=== PATIENT | male | born 1960 | race Caucasian/White ===

== ENCOUNTER 2016-09-13 00:49 | Emergency (ER) | payer SELFPAY ==
[~2016-09-13] VITALS: Ht 175.3 cm; Wt 88.0 kg
[~2016-09-13 00:49] MED LIST: IBUPROFEN600 MG PO; NORCO 5-325 TA1 EACH PO; ROBAXIN-750750 MG PO
== END 2016-09-13 02:06 | disposition home or self-care (01) ==
LOC: ED 00:49
DX: R25.2 Cramp and spasm (principal); E11.9 Type 2 diabetes mellitus without complications; F17.200 Nicotine dependence, unspecified, uncomplicated; Z79.899 Other long term (current) drug therapy
CPT/HCPCS: 80053; 83735; 99283

== ENCOUNTER 2016-09-28 02:40 | Emergency (ER) | payer SELFPAY ==
[~2016-09-28] VITALS: Ht 175.3 cm; Wt 86.2 kg
--- NOTE | 2016-09-28 07:02 | EKG ---
[facility] [address] [facility] [place], [place] [address] Signed Sinus bradycardia Otherwise normal ECG No previous ECGs available Confirmed by JANEL KHAN MD ([id number]) on 09/28/2016 7:02:15 AM Electronically Signed By: JANEL KHAN MD 09/28/16 0702 PATIENT NAME: SHALONDA REAL TRELL Electrocardiogram DATE OF : 64 PHYSICIAN: JANEL KHAN MD REPORT #: [id number] REPORT IS CONFIDENTIAL AND NOT TO BE RELEASED WITHOUT AUTHORIZATION
== END 2016-09-28 07:45 | disposition short-term general hospital (02) ==
LOC: ED 02:40
DX: I21.4 Non-ST elevation (NSTEMI) myocardial infarction (principal); E11.9 Type 2 diabetes mellitus without complications; F17.200 Nicotine dependence, unspecified, uncomplicated
CPT/HCPCS: 71010; 80053; 84484; 85025; 93005; 93010; 96374; 99285

== ENCOUNTER 2016-12-25 09:42 | Emergency (ER) | payer SELFPAY ==
[~2016-12-25] VITALS: Ht 175.3 cm; Wt 86.2 kg
== END 2016-12-25 09:53 | disposition home or self-care (01) ==
LOC: ED 09:42
DX: Z00.8 Encounter for other general examination (principal)

== ENCOUNTER 2018-03-23 18:47 | Emergency (ER) | payer BC ==
[~2018-03-23] VITALS: Ht 175.3 cm; Wt 85.3 kg
[~2018-03-23 18:47] MED LIST changes: +ATORVASTATIN CA80 MG PO; +LOSARTAN POTASS50 MG PO
--- OUTSIDE RECORDS SUMMARY | 2018-03-23 18:50 | XMS ---
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 Soledad has no Care Guidelines for this patient. Care History Medical/Surgical 01/16/2018 [facility] INCIDENT- PATIENT REFERRED TO WALK IN CLINIC-01/15/18. - PATIENT HAS A FOLLOW UP APT FOR [facility]I INJURY ON 01/22/18 WITH WALK IN CLINIC. Jeimy VISIT COUNT (12 MO.) 2 [facility] TOTAL 2 NOTE: Visits indicate total known visits. ED/C VISIT TRACKING (12 MO.) 03/23/2018 18:47 [facility] [place] TYPE: Emergency COMPLAINT: - BACK PAIN/NON-INJURY 01/15/2018 10:17 [facility] [place] TYPE: Emergency COMPLAINT: - ELBOW PAIN/INJURY DIAGNOSES: - Pain in right elbow INPATIENT VISIT TRACKING (12 MO.) No inpatient visits to display in this time frame [id number]
[2018-03-23] MEDS ORDERED: CYCLOBENZAPRINE10 MG PO (19:54)
== END 2018-03-23 20:07 | disposition home or self-care (01) ==
LOC: ED 18:47
DX: M54.42 Lumbago with sciatica, left side (principal); E11.9 Type 2 diabetes mellitus without complications; F17.200 Nicotine dependence, unspecified, uncomplicated; Z79.899 Other long term (current) drug therapy
CPT/HCPCS: 99283

== ENCOUNTER 2018-04-15 06:11 | Emergency (ER) | payer OTHER, BC ==
[~2018-04-15] VITALS: Ht 175.3 cm; Wt 85.3 kg
[~2018-04-15 06:11] MED LIST changes: +CYCLOBENZAPRINE10 MG PO
--- OUTSIDE RECORDS SUMMARY | 2018-04-15 06:14 | XMS ---
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 - Has Care Guidelines - [facility] - 2 Visits in 30 Days CARE PROVIDERS MAXIMILIANO SALAMANCA Nurse Practitioner: Family 03/25/2018-Current PHONE: Unknown Soledad has no Care Guidelines for this patient. Care History Medical/Surgical 03/25/2018 [facility] - Patient is currently established with [facility]. If patient is seen in the ED during business hours. Please contact CHWs at [facility]. Care Recommendation: This patient has had 5 or more Emergency Department visits in the last 12 months.\T\nbsp; Patient requires education on the scope and purpose of the ED as an acute care provider not a Primary Care Provider and should not be utilized for chronic conditions.\T\nbsp; These are guidelines and the provider should exercise clinical judgment when providing care. 01/16/2018 [facility] - [facility]I INCIDENT- PATIENT REFERRED TO WALK IN CLINIC-01/15/18. - PATIENT HAS A FOLLOW UP APT FOR OJI INJURY ON 01/22/18 WITH WALK IN CLINIC. E.D. VISIT COUNT (12 MO.) 3 [facility] TOTAL 3 NOTE: Visits indicate total known visits. ED/UCC VISIT TRACKING (12 MO.) 04/15/2018 06:13 [facility] [place] TYPE: Emergency COMPLAINT: - BACK PAIN/INJURY 03/23/2018 18:47 [facility] [place] TYPE: Emergency COMPLAINT: - BACK PAIN/NON-INJURY DIAGNOSES: - Nicotine dependence, unspecified, uncomplicated - Type 2 diabetes mellitus without complications - Other group home (current) drug therapy - Lumbago with sciatica, left side - Low back pain 01/15/2018 10:[address] [facility] [place] TYPE: Emergency COMPLAINT: - ELBOW PAIN/INJURY DIAGNOSES: - Pain in right elbow INPATIENT VISIT TRACKING (12 MO.) No inpatient visits to display in this time frame [id number]
[2018-04-15] MEDS ORDERED: METFORMIN HCL1000 MG PO (06:23)
[2018-04-15] MEDS ORDERED: GABAPENTIN300 MG PO (06:23)
[2018-04-15] MEDS ORDERED: CYCLOBENZAPRINE10 MG PO (06:44)
[2018-04-15] MEDS ORDERED: DICLOFENAC SODI75 MG PO (06:44)
== END 2018-04-15 06:50 | disposition home or self-care (01) ==
LOC: ED 06:11
DX: S39.012A Strain of muscle, fascia and tendon of lower back, initial encounter (principal); X50.9XXA Other and unspecified overexertion or strenuous movements or postures, initial encounter; E11.9 Type 2 diabetes mellitus without complications; I25.2 Old myocardial infarction; F17.200 Nicotine dependence, unspecified, uncomplicated; Z79.899 Other long term (current) drug therapy; Z79.84 Long term (current) use of oral hypoglycemic drugs
CPT/HCPCS: 99283

== ENCOUNTER 2018-11-20 15:53 | Emergency (ER) | payer SELFPAY ==
[~2018-11-20] VITALS: Ht 175.3 cm; Wt 86.2 kg
--- OUTSIDE RECORDS SUMMARY | ~2018-11-20 | XMS | Clinical Summary ---
Demographics + + + | Address | [address] | | | [place] [address] | + + + | Home Phone | | + + + | Preferred Language | Unknown | + + + | Marital Status | Single | + + + | Temple Affiliation | Unknown | + + + | Race | Unknown | + + + | Ethnic Group | Unknown | + + + Author + + + | Author | [facility] | | | and [place] | + + + | Organization | [facility] | | | and [place] | + + + | Address | Unknown | + + + | Phone | Unavailable | + + + Support + + + + + | Name | Relationship | Address | Phone | + + + + + | Lukas Delong | ECON | [address] | | | | | [place], [place] | | | | | [address] | | + + + + + Care Team Providers + +------+ + | Care Rn Lab Name | Role | Phone | + +------+ + | No, Physician | PCP | Unavailable | + +------+ + Allergies No Known Allergies Medications + + + +---------+------+------+-------+ | Medication | Sig | Dispensed | Refills | Star | End | Statu | | | | | | t | Date | s | | | | | | Date | | | + + + +---------+------+------+-------+ | aspirin 81 mg | Take 1 tablet by | 30 | 2 | 08/ | | Activ | | chewable tablet | mouth Daily. | tablet | | 03/10 | | e | | | | | | 17 | | | + + + +---------+------+------+-------+ | nitroglycerin | Take one tablet | 25 | 11 | 08/2 | | Activ | | (NITROSTAT) 0.4 mg | under tongue as | tablet | | 10/08 | | e | | SL tablet | needed for chest | | | 18 | | | | | pain, may repeat | | | | | | | | every 5 minutes up | | | | | | | | to 3 doses. If no | | | | | | | | relief after 3rd | | | | | | | | dose, call 911. | | | | | | + + + +---------+------+------+-------+ | atorvaSTATin | TAKE 1/2 TABLET BY | 45 | 3 | 10/2 | | Activ | | (LIPITOR) 80 MG | MOUTH NIGHTLY | tablet | | 11/08 | | e | | tablet | | | | 18 | | | + + + +---------+------+------+-------+ | losartan (COZAAR) | TAKE ONE TABLET BY | 90 | 3 | 10/2 | | Activ | | 50 mg tablet | MOUTH DAILY | tablet | | 11/08 | | e | | | | | | 18 | | | + + + +---------+------+------+-------+ Active Problems + + + | Problem | Noted Date | + + + | Coronary atherosclerosis of [place] coronary artery | 10/05/2016 | + + + | Uncontrolled type 2 diabetes mellitus without complication, | 09/28/2016 | | without long-term current use of insulin | | + + + | Smoking greater than 20 pack years | 09/28/2016 | + + + Resolved Problems + + + + | Problem | Noted | Resolved | | | Date | Date | + + + + | Chest pain | 09/29/19 | | | | | | + + + + Encounters +--------+ + + + + | Date | Type | Specialty | Care Team | Description | +--------+ + + + + | 10/23/ | Telephone | Cardiology | Cyril Moore | Other | | 2019 | | | MD [facility] | | +--------+ + + + + from Last 3 Months Family History + + +------+ + | Medical History | Relation | Name | Comments | + + +------+ + | Coronary artery | Neg Hx | | | | disease | | | | + + +------+ + | Stroke | Neg Hx | | | + + +------+ + Social History + +-------+ +--------+ + | Tobacco Use | Types | Packs/Day | Years | Date | | | | | Used | | + +-------+ +--------+ + | Former Smoker | | 0.75 | 36 | 198009/28/2016 | + +-------+ +--------+ + + +---+---+---+ | Smokeless Tobacco: | | | | | Never Used | | | | + +---+---+---+ + + | Tobacco Cessation: Counseling Given: Yes | + + + + +---------+ + | Alcohol Use | Drinks/We | oz/Week | Comments | | | ek | | | + + +---------+ + | No | | | | + + +---------+ + + + + | Sex Assigned at | Date Recorded | | | | + + + | Not on file | | + + + + + + + | Job Start Date | Occupation | Industry | + + + + | Not on file | Not on file | Not on file | + + + + + + + + | Travel History | Travel Start | Travel End | + + + + + + | No recent travel history available. | + + Last Filed Vital Signs + + + + | Vital Sign | Reading | Time Taken | + + + + | Blood Pressure | 132/64 | 09/27/2017821 PDT | + + + + | Pulse | 78 | 09/27/2017821 PDT | + + + + | Temperature | 35.8 C (96.4 F) | 09/29/2016699 PDT | + + + + | Respiratory Rate | 14 | 09/27/2017821 PDT | + + + + | Oxygen Saturation | 96% | 09/29/2016699 PDT | + + + + | Inhaled Oxygen | - | - | | Concentration | | | + + + + | Weight | 86.6 kg (191 lb) | 09/27/2017821 PDT | + + + + | Height | 179.8 cm (5' 10.8") | 09/27/2017821 PDT | + + + + | Body Mass Index | 26.79 | 09/27/2017 0822 PDT | + + + + Plan of Treatment + + + + + | Health Maintenance | Due Date | Last Done | Comments | + + + + + | Hepatitis C | | | | | Screening | 3 | | | + + + + + | Diabetic Eye Exam | | | | | | 1 | | | + + + + + | Diabetic Foot Exam | | | | | | 1 | | | + + + + + | Vaccine: | | | | | Dtap/Tdap/Td (1 - | 2 | | | | Tdap) | | | | + + + + + | Vaccine: | | | | | Pneumococcal 19-64 | 2 | | | | (PPSV23 only) Medium | | | | | Risk (1 of 1 - | | | | | PPSV23) | | | | + + + + + | Colorectal Cancer | | | | | Screening | 3 | | | | (Colonoscopy) | | | | + + + + + | Vaccine: Zoster (1 | | | | | of 2) | 3 | | | + + + + + | Hemoglobin A1c | | 09/29/2016 | | | Screening | 7 | | | + + + + + | Vaccine: Influenza | | | | | (#1) | 9 | | | + + + + + Results Not on filefrom Last 3 Months Insurance +-------+--------+ +--------+-------+---------+------+ | Payer | Benefi | Subscriber | Effect | Phone | Address | Type | | | t Plan | ID | mannie | | | | | | / | | Dates | | | | | | Group | | | | | | +-------+--------+ +--------+-------+---------+------+ | BCBS | BCBS | [id number] | 02/19/19 | | | PPO | | | OOS | 6 | 18-Pre | | | | | | PPO | | sent | | | | +-------+--------+ +--------+-------+---------+------+ + +--------+ +--------+ + + | Guarantor Name | Accoun | Relation to | Date | Phone | Billing Address | | | t Type | Patient | of | | | | | | | | | | + +--------+ +--------+ + + | Emmanuel Delong | Person | Self | [birth year] | [address] | | | al/Fam | | 1961 | [phone] | [place] [address] | | | jael | | | 2 (Home) | | + +--------+ +--------+ + + Advance Directives Patient has advance care planning documents, and code status on file. For more information, please contact:[facility] [place] [facility] [address] + + + + + | Code Status | Date | Date | Comments | | | Activated | Inactivated | | + + + + + | Full Code | 09/28/2016 | 09/29/2016 | | | | 9:27 | 12:05 | | + + + + +
--- OUTSIDE RECORDS SUMMARY | ~2018-11-20 | XMS | Encounter Summary ---
Demographics + + + | Address | [address] | | | [place] [address] | + + + | Home Phone | | + + + | Preferred Language | Unknown | + + + | Marital Status | Single | + + + | Cheondoism Affiliation | Unknown | + + + | Race | Unknown | + + + | Ethnic Group | Unknown | + + + Author + + + | Author | [facility] | | | and [place] | + + + | Organization | [facility] | | | and [place] | + + + | Address | Unknown | + + + | Phone | Unavailable | + + + Support + + + + + | Name | Relationship | Address | Phone | + + + + + | Lukas Delong | ECON | [address] | | | | | [place] | | | | | [address] | | + + + + + Care Team Providers + +------+ + | Care Line Camera Operator Name | Role | Phone | + +------+ + | No, Physician | PCP | Unavailable | + +------+ + Reason for Visit +--------+ + | Reason | Comments | +--------+ + | Other | | +--------+ + Encounter Details +--------+ + + + + | Date | Type | Department | Care Team | Description | +--------+ + + + + | 10/23/ | Telephone | [facility] | Cyril Moore | Other | | 2018 | | [address] | MD Dayron [address] | | | | | [place], | [address] [place] | | | | | [place] [address] | [place] [address] | | | | | [phone] | | | | | | | | +--------+ + + + + Social History + +-------+ +--------+ + | Tobacco Use | Types | Packs/Day | Years | Date | | | | | Used | | + +-------+ +--------+ + | Former Smoker | | 0.75 | 36 | 1980 - 09/28/2016 | + +-------+ +--------+ + + +---+---+---+ | Smokeless Tobacco: | | | | | Never Used | | | | + +---+---+---+ + + +---------+ + | Alcohol Use [...] recent travel history available. | + + documented as of this encounter Functional Status + + + + | Functional Status | Response | Date of Assessment | + + + + | Are you deaf or do you have serious | No | 09/28/2016 | | difficulty hearing? | | | + + + + | Do you have serious difficulty walking or | No | 09/28/2016 | | climbing stairs? (5 years old or older) | | | + + + + | Do you have difficulty dressing or bathing? | No | 09/28/2016 | | (5 years old or older) | | | + + + + | Because of a physical, mental, or emotional | No | 09/28/2016 | | condition, do you have difficulty doing | | | | errands alone such as visiting a doctor's | | | | office or shopping? [15 years old or | | | | older)] | | | + + + + + + + + | Cognitive Status | Response | Date of Assessment | + + + + | Because of a physical, mental, or emotional | No | 09/28/2016 | | condition, do you have serious difficulty | | | | concentrating, remembering, or making | | | | decisions? (5 years old or older) | | | + + + + documented as of this encounter Plan of Treatment Not on filedocumented as of this encounter Visit Diagnoses Not on filedocumented in this encounter"
--- OUTSIDE RECORDS SUMMARY | ~2018-11-20 | XMS | Encounter Summary ---
Demographics + + + | Address | [address] | | | [place] [address] | + + + | Home Phone | | + + + | Preferred Language | Unknown | + + + | Marital Status | Single | + + + | Congregation Affiliation | Unknown | + + + | Race | Unknown | + + + | Ethnic Group | Unknown | + + + Author + + + | Author | [facility] | | | and [place] | + + + | Organization | [facility] | | | and [place] [...] [place] | | | | | [address] | | + + + + + Care Team Providers + +------+ + | Care Automatic Typewriter Inspector Name | Role | Phone | + [...] + + | 10/23/ | Telephone | [facility] | Cyril Moore | Other | | 2018 | | [address] | MD Dayron [address] | | | | | [place], | [address] [place] | | | | | [place] [address] | [place] [address] | | | | | [phone] | [phone] | | | | | | | [...]
--- OUTSIDE RECORDS SUMMARY | ~2018-11-20 | XMS | Clinical Summary ---
Demographics + + + | Address | [address] | | | [place] [address] | + + + | Home Phone | | + + + | Preferred Language | Unknown | + + + | Marital Status | Single | + + + | Denominational Affiliation | Unknown | + + + | Race | Unknown | + + + | Ethnic Group | Unknown | + + + Author + + + | Author | [facility] | | | and [place] | + + + | Organization | [facility] | | | and [place] | [...] [place], [place] | | | | | [address] | | + + + + + Care Team Providers + +------+ + | Care In Store Marketing Representative Name | Role | Phone | + [...] + + + | Coronary atherosclerosis of platinum coronary artery | 10/05/2016 | + + [...] +-------+--------+ +--------+-------+---------+------+ | BCBS | BCBS | [id number] | 02/19/19 | | | PPO | [...] | 1961 | [phone] | [place] [address] | | | jael | | | 2 (Home) | | + +--------+ +--------+ + + Advance Directives Patient has advance care planning documents, and code status on file. For more information, please contact:[facility] [place] [address] + + + + + | Code Status | Date | Date | Comments | | | Activated | Inactivated | | + + + + + | Full Code | 09/28/2016 | 09/29/2016 | | | | 9:27 | 12:05 | | + + + + +
[~2018-11-20 15:53] MED LIST changes: +DICLOFENAC SODI75 MG PO; +GABAPENTIN300 MG PO; +METFORMIN HCL1000 MG PO
--- OUTSIDE RECORDS SUMMARY | 2018-11-20 15:58 | XMS ---
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 Care History Medical/Surgical 03/25/2018 [facility] - Patient is currently established with [facility]. If patient is seen in the ED during business hours. Please contact CHWs at [facility]. Care Recommendation: This patient has had 5 or more Emergency Department visits in the last 12 months.\T\nbsp; Patient requires education on the scope and purpose of the ED as an acute care provider not a Primary Care Provider and should not be utilized for chronic conditions.\T\nbsp; These are guidelines and the provider should exercise clinical judgment when providing care. 01/16/2018 [facility] - OJI INCIDENT- PATIENT REFERRED TO WALK IN CLINIC-01/15/18. - PATIENT HAS A FOLLOW UP APT FOR [facility]I INJURY ON 01/22/18 WITH WALK IN CLINIC. E.D. VISIT COUNT (12 MO.) [address] [facility] TOTAL 4 NOTE: Visits indicate total known visits. 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 - Nicotine dependence, unspecified, uncomplicated - Old myocardial infarction - Strain of muscle, fascia and tendon of lower back, initial encounter - Low back pain - Other care home (current) drug therapy - Type 2 diabetes mellitus without complications - Other and unspecified overexertion or strenuous movements or postures, initial encounter 03/23/2018 18:47 [facility] [place] TYPE: Emergency COMPLAINT: - BACK PAIN/NON-INJURY DIAGNOSES: - Nicotine dependence, unspecified, uncomplicated - Type 2 diabetes mellitus without complications - Other care home (current) drug therapy - Lumbago with sciatica, left side - Low back pain 01/15/2018 10:17 [facility] [place] TYPE: Emergency COMPLAINT: - ELBOW PAIN/INJURY DIAGNOSES: - Pain in right elbow INPATIENT VISIT TRACKING (12 MO.) No inpatient visits to display in this time frame [id number]
[2018-11-20] MEDS ORDERED: PREDNISONE20 MG PO (16:20)
== END 2018-11-20 16:38 | disposition home or self-care (01) ==
LOC: ED 15:53
DX: S39.012A Strain of muscle, fascia and tendon of lower back, initial encounter (principal); E11.9 Type 2 diabetes mellitus without complications; I25.2 Old myocardial infarction; Z95.5 Presence of coronary angioplasty implant and graft; Z79.84 Long term (current) use of oral hypoglycemic drugs; X58.XXXA Exposure to other specified factors, initial encounter
CPT/HCPCS: 99283; J7512

== ENCOUNTER 2021-06-05 20:21 | Emergency (ER) | payer OTHER ==
[~2021-06-05] VITALS: Ht 175.3 cm; Wt 86.2 kg
[~2021-06-05 20:21] MED LIST changes: +PREDNISONE20 MG PO
[2021-06-05] MEDS ORDERED: PROTONIX20 MG PO (23:49)
[2021-06-05] MEDS ORDERED: ULTRAM50 MG PO (23:49)
[2021-06-05] MEDS ORDERED: CARAFATE1 GM PO (23:49)
[2021-06-05] MEDS ORDERED: ONDANSETRON ODT8 MG PO (23:49)
== END 2021-06-06 00:05 | disposition home or self-care (01) ==
LOC: ED 20:21
DX: K29.70 Gastritis, unspecified, without bleeding (principal); E11.9 Type 2 diabetes mellitus without complications; I25.2 Old myocardial infarction; Z87.891 Personal history of nicotine dependence
CPT/HCPCS: 74177; 80053; 81001; 83036; 83690; 83735; 85025; 96375; 99284-25; A9270; J1170; J2405; J7030; Q9967

== ENCOUNTER 2022-04-06 19:12 | Inpatient (IN) | payer OTHER ==
[~2022-04-06] VITALS: Ht 175.3 cm; Wt 80.9 kg
[~2022-04-06 19:12] MED LIST changes: +CARAFATE1 GM PO; +ONDANSETRON ODT8 MG PO; +PROTONIX20 MG PO; +ULTRAM50 MG PO
--- NOTE | 2022-04-06 23:00 | NUR ---
pt arrived to medsurg floor via ed stretcher. vss, pt oriented to room and poc for shift. float rn inge in room to place new iv as old one to right ac sluggish following ct. pt instructed to use call light before getting oob for safety, pt verbalized understanding. iv fluids infusing as directed. primary rn phani remains in room for med pass and pt cares.
--- NOTE | 2022-04-07 02:39 | NUR ---
PT ARRIVED TO FLOOR FROM ER. PT ALERT AND ORIENTED X 4 PT AMBULATORY. RESP EVEN ET UNLABORED. PT ON TELE RUNNING SR. PT HAS NO COMPLAINTS OF CHEST PAIN OR SOB AT THIS TIME. PT ON ROOM AIR. PT VS STABLE. PT GIVEN SNACK UPON ARRIVAL RECHECKED BLOOD SUGAR PT 251 BEFORE SNACK GIVEN. PT STATES WAS AWARE OF BEING DIABETIC BUT WASN'T GETTING ANY TREATMENT DUE TO NOT REALLY BELIEVING HE WAS DIABETIC. EDUCATED PT ON IMPORTANCE OF FOLLOWING UP WITH PCP AND COMPLYING WITH TREATMENT. PT IV CAME OUT IV WAS RESTARTED IN RIGHT HAND PT HAS NS @ 125. PT CURRENTLY RESTING QUIETLY IN BED.
--- NOTE | 2022-04-07 06:15 | NUR ---
PT LYING IN BED RESTING QUIETLY. RESP EVEN ET UNLABORED REMAINS ON RA. NO COMPLAINTS OF CHEST PAIN OR SOB. PT URINE DRUG SCREEN POSITIVE FOR OXYCODONE, METHAMPHETAMINES, METHADONE AND AMPHETAMINES. NO ACUTE DISTRESS AT THIS TIME.
--- NOTE | 2022-04-07 07:22 | NUR ---
ASSUMING CARE OF PT. RECEIVED REPORT FROM MYKE PRICE.
--- NOTE | 2022-04-07 08:28 | NUR ---
PT MORNING ASSESSMENT COMPLETED AND MEDICATION PROVIDED. PT BREAKFAST BROUGHT IN ROOM ONCE ACCUCHECK COMPLETED. PT BLOOD SUGAR 403. DR KHAN INFORMED OF ELEVATED BLOOD SUGAR. NO ADDITIONAL ORDERS AT THIS TIME, ADVISED TO CONTINUE SLIDING SCALE. PT HAS ABX INFUSING AND NS @ 125ML/HR. PT DENIES PAIN OR NEEDS AT THIS TIME. PT HEART SOUNDS STRONG, BOWEL TONES ACTIVE, AND LUNGS HAVE CRACKLES NOTED IN LEFT UPPER AND LOWER QUADRANT AND RIGHT LOWER. PT SKIN INTACT. PT ALERT AND ORIENTED, FOLLOWING QUESTIONS APPROPRIATELY AND PERRLA.
--- NOTE | 2022-04-07 08:35 | NUR ---
Morning rounds complete. Patient is awake amd sitting up in bed eating breakfast. Alert and oriented. No further concerns at this time, call light within reach.
--- NOTE | 2022-04-07 09:19 | NUR ---
PT RESTING IN BED WATCHING TV. CALL LIGHT WITHIN REACH AND BEDRAIL UP FOR SAFETY. PT DENIES NEEDS AT THIS TIME.
--- NOTE | 2022-04-07 11:45 | NUR ---
MOSHE INFORMED THIS RN OF ACCUCHECK READING OF 427. DR KHAN INFORMED OF ELEVATED BS. NO ADDITIONAL ORDERS AT THIS TIME. PT GIVEN INSULIN VIA SLIDING SCALE.
--- NOTE | 2022-04-07 12:01 | NUR ---
PT ALERT, ORIENTED AND SITTING UP IN BED WATCHING TV. PT IS PLEASANT, SAID HE FEELS BETTER TODAY. DEE BOLAÑOS INTO CARE FOR PT-JAMIE John.POST AND BLESSING WILL FOLLOW
--- NOTE | 2022-04-07 13:34 | NUR ---
IN ROOM TO CHECK ON PT. PT COMPLAINT OF BACK AND LEFT SIDE PAIN 08/28. PT GIVEN NORCO FOR PAIN. PT RESTING IN BED, CALL LIGHT WITHIN REACH, BEDRAIL UP FOR SAFETY. PT DENIES FURTHER NEEDS AT THIS TIME.
--- NOTE | 2022-04-07 14:09 | NUR ---
MED REC COMPLETE
--- NOTE | 2022-04-07 14:12 | NUR ---
PT ASSISTED TO BATHROOM VIA STAND BY ASSIST AND BACK TO BED. PT STATES HIS PAIN IS GONE AFTER RECEIVING PAIN MEDICATION. DENIES FURTHER NEEDS AT THIS TIME. AFTERNOON ASSESSMENT COMPLETED.
--- NOTE | 2022-04-07 16:45 | NUR ---
MOSHE INFORMED THIS RN OF BS OF 387. DR SHAIKH INFORMED OF PT CONTINUED ELEVATED BLOOD SUGARS AND PT NEED FOR 11UNITS OF INSULIN EACH TIME WELL PT PMH. DR SHAIKH WILL BE ORDERING ADDITIONAL INSULIN FOR THIS EVENING BUT ADVISED TO CONTINUE THE SLIDING SCALE AT THIS TIME.
--- NOTE | 2022-04-07 16:53 | NUR ---
PT RESTING IN BED WATCHING TV. PT HAS CALL LIGHT WITHIN REACH AND BEDRAIL UP FOR SAFETY.PT DENIES PAIN OR NEEDS AT THIS TIME.
--- NOTE | 2022-04-07 17:10 | NUR ---
PT GIVIN SLIDING SCALE INSULIN DOSAGE PER PROTOCOL. FLUID BAG CHANGED AND PT GIVEN FRESH WATER. DENIES NEEDS AT THIS TIME.
--- NOTE | 2022-04-07 18:06 | NUR ---
PT ADMITTED FOR PNEUMONIA/PE. PT RECEIVING IV ABX AND NS @ 125/HR. PT HAS DIMISHED LUNG SOUNDS. PT COMPLAINT OF BACK AND SIDE PAIN AND RECIEVED PO PAIN MEDICATION WHICH HAD RELEIVED SYMPTOMS. PT ON A 60CARB DIET AND RECEIVING INSULIN ON A SLIDING SCALE WITH ACCUCHECK READING SHOWING IN THE HIGH 300S-400S. PT IS ON TELEMETRY. PT IS SBA TO BATHROOM WITH BEDREST WITH BATHROOM PRIVLEDGES.
--- NOTE | 2022-04-07 18:29 | NUR ---
PATIENT IN BED AFTER MEAL. VITALS AND I/O'S COMPLETED. CALL LIGHT WITHIN REACH.
--- NOTE | 2022-04-07 19:14 | NUR ---
BEDSIDE REPORT RECEIVED PER MAMI RN, PT AWAKE AND ALERT, NO SOB NOTED, PT REQUESTING PAIN MED FOR LEFT CHEST DISCOMFORT. PLAN TO MEDICATE PER ORDER.
--- NOTE | 2022-04-07 19:36 | NUR ---
PT RESTING IN BED, VS DONE, AFEBRILE, MEDICATED FOR LEFT LOWER CHEST PAIN WITH 1 NORCO PER ORDER, FRESH WATER GIVEN, PT WITHOUT SOB, RESP EVEN AND REG.
--- NOTE | 2022-04-07 21:30 | NUR ---
PT RESTING WITH EYES CLOSED.
--- NOTE | 2022-04-07 22:34 | NUR ---
PT DROWSY BUT AWAKES TO NAME, SS INSULIN 9 UNITS HUMALOG GIVEN FOR BLOOD SUGAR 0F 360. RT MED GIVEN AND ASSESSMENT COMPLETED.
--- NOTE | 2022-04-08 00:30 | NUR ---
PT ASLEEP, RESP EVEN AND REG, WITHOUT DISTRESS.
--- NOTE | 2022-04-08 02:00 | NUR ---
ROUNDED ON pt, pt RESTING QUIETLY IN BED WITH EYES CLOSED. ON RA, RR EVEN AND UNLABORED. NO DISTRESS NOTED. IV SITE WNL, FLUIDS INFUSING DIRECTED. pt VOIDING VIA URINAL, INSTRUCTED TO USE CALL LIGHT ONCE DONE. CALL LIGHT IN REACH.
--- NOTE | 2022-04-08 02:45 | NUR ---
PT ASLEEP, RESP EVEN AND REG AT 16/MIN.
--- NOTE | 2022-04-08 05:35 | NUR ---
PT ASLEEP, AWAKEN FOR VS AND ASSESSMENT, C/O GENERALIZED DISCOMFORT WITH MOVEMENT, APPEARS STIFF, REPOSITIONED TO RIGHT SIDE, FALLS ASLEEP WHEN LEFT UNDISTURBED, IV SITE PATENT, IV CONTS TO INFUSE WELL.
--- NOTE | 2022-04-08 06:33 | NUR ---
PT HAS SLEPT WELL TO NIGHT, VS STABLE AND AFEBRILE, CONTINUES TO HAVE DIM BREATH SOUNDS IN THE BASES. NO COUGH NOTED TONIGHT, SATS 94-97% ON RA. MEDICATED X 1 WITH NORCO EARLY IN THE SHIFT FOR LEFT LOWER CHEST AND SIDE PAIN.
--- NOTE | 2022-04-08 07:17 | NUR ---
REPORT RECEIVED FROM LUIS A PRICE, ALL QUESTIONS ANSWERED. PT RESTING IN BED WITH EYES CLOSED, RESPIRATIONS EVEN AND UNLABORED. CALL LIGHT IN REACH.
--- NOTE | 2022-04-08 08:43 | NUR ---
MORNING ASSESSMENT COMPLETE. PT AWAKE IN BED EATINGBREAKFAST, C/O LEFT RIB PAIN. DENIES NEED FOR INTERVENTION AT THIS TIME. IV PATENT AND RUNNING ABX. O2 SAT 94% ON RA, CRACKLES HEARD ON RLL, CLEAR OTHERWISE. PT DENIES FURTHER NEEDS AT THIS TIME. CALL LIGHT IN REACH.
--- NOTE | 2022-04-08 09:43 | NUR ---
Pt c/o 08/28 left rib pain. Given PRN [place], see Emar. pt denies further needs at this time. Call light in reach.
--- NOTE | 2022-04-08 11:17 | NUR ---
PT AWAKE IN BED, REQUESTING TO PLAN A SHOWER TODAY. STATED WE WOULD PLAN A SHOWER WITH APPLICATION INTEGRATOR TODAY. PT AGREEABLE. DENIES FURTHER NEEDS AT THIS TIME. CALL LIGHT IN REACH.
--- NOTE | 2022-04-08 12:37 | NUR ---
PT SITTING UP IN BED EATING LUNCH. STATES PAIN HAS IMPROVED. DENIES FURTHER NEEDS AT THIS TIME. CALL LIGHT IN REACH.
--- NOTE | 2022-04-08 16:40 | NUR ---
CHIN STRAP SEWER SHOWERING PT AT THIS TIME.
--- NOTE | 2022-04-08 17:16 | NUR ---
CALLED IN ROOM BY GAS EXAMINER, PT C/O OF SUDDEN INCREASE OF LEFT SIDED RIB PAIN. BP 160/86, HEART RATE PER TELE 94, O2 SAT 86%, PT APPEARS TO BE HOLDING BREATH WITH PAIN, PLACED ON 2LNC, INSTRUCTED THROUGH DEEP BREATHING. O2 SAT 96%. REQUESTED AND GIVEN PRN NORCO. CALLED DR SHAIKH TO INFORM HIM OF PT SUDDEN INCREASE OF LEFT SIDED RIB PAIN, SUGGESTED TO CONTINUE TO MONITOR. NO NEW ORDERS AT THIS TIME. WILL CONINTUE WITH PLAN OF CARE.
--- NOTE | 2022-04-08 19:00 | NUR ---
PT CONTINUES TO C/P LEFT SIDED RIB PAIN RATED 9/10. GIVEN SECOND TAB OF NORCO TO TITRATE TO MAX DOSE, SEE EMAR. PT DENIES FURTHER NEEDS AT THIS TIME. REMAINS ON 2L NC WITH CPOX IN PLACE, O2 SAT 93%.
--- NOTE | 2022-04-08 19:24 | NUR ---
SHIFT REPORT RECEIVED FROM JULIETA RN, PT RESTING QUIETLY AT THIS TIME, RESP REG, AWAKENS TO VOICE, WITHOUT REQUEST AT THIS TIME, OXYGEN PER NC REPLACED, IV PATENT AND INFUSING WELL AT 125ML/HR WITH NS.
--- NOTE | 2022-04-08 20:00 | NUR ---
PHONE CALL RECEIVED FROM A KYLAH SWEENEY, DIRECTOR OF [facility]. PER KYLAH SHE HAD TRIED SEVERAL TIMES DURING THE DAY TO GET INFORMATION REGARDING THE PATIENT AND HIS MEDICATIONS. PER DAY SHIFT FIELD TRAFFIC INVESTIGATOR, COLLETTE, PATIENT DID NOT WANT INFORMATION RELEASED. DISCUSSED WITH KYLAH FROM [facility] AND SHE RELAYED SHE JUST WANTED TO MAKE SURE HE WAS CONTINUING HIS METHADONE AND WOULD CONTACT PATIENT.
--- NOTE | 2022-04-08 20:02 | NUR ---
PT ASSISTED UP TO BR BY MAXIMILIANO PRICE, GAIT REPORTS SLIGHTLY UNSTEADY, MISSED VOID, BACK TO BED, RESTING
--- NOTE | 2022-04-08 21:40 | NUR ---
PT ASLEEP,RESP EVEN AND REG, SATS STABLE, AWAKENS TO NAME, VS STABLE, ASSESSMENT COMPLETED, PT DENIES NEED FOR PAIN MED, ACCUCHECK 229.
--- NOTE | 2022-04-08 21:40 | NUR ---
PT HAS IV IN RIGHT FOREARM, SITE INTACT,WINDOW DRESS, NO SIGNS OF INFILTRATION, NS AT 125ML/HR CONTINUES.
--- NOTE | 2022-04-08 22:00 | NUR ---
SS INSULIN GIVEN PER ORDER, 5 UNITS, OXYGEN ON AT 1 L PER NC, PT WITHOUT REQUESTS AT THIS TIME, IV PATENT WITH NS AT 125ML/HR.
--- NOTE | 2022-04-08 23:05 | NUR ---
PT AWAKE, FOUND SITTING ON SIDE OF BED,REPORTS HE NEEDS HELP GOING TO BR, ASSISTED WITH URINAL, VOIDED 400ML YELLOW URINE, C/O LEFT CHEST WALL PAIN, MEDICATED WITH 2 NORCO PER ORDER, LAYING IN BED, INSTRUCTED TO CALL RN FOR ASSIST UP TO BR, CALL LIGHT GIVEN TO PT, PT RESTING WITH EYES CLOSED.
--- NOTE | 2022-04-09 01:10 | NUR ---
PT ASLEEP, RESP EVEN AND REG
--- NOTE | 2022-04-09 02:50 | NUR ---
PT AWAKE AND GRIMACING, RECENTLY VOIDED PER URINAL, C/O LEFT CHEST WALL PAIN WITH DEEP BREATH, REQUESTING MEDICATION, MEDICATED WITH 1 NORCO FOR PAIN 08/28, PT DESIRES NOT TO WEAR OXYGEN, OXYGEN SATS STABLE AT 96% ON ROOM AIR. WARM BLANKET GIVEN, PT ATTEMPTING TO REST.
--- NOTE | 2022-04-09 04:15 | NUR ---
IV IN RIGHT FOREARM DRESSING INTACT, WNL, CONTS INFUSING NS AT 125ML/HR
--- NOTE | 2022-04-09 04:15 | NUR ---
PT AWAKE, MOANING WITH PAIN IN LEFT CHEST WALL, PT STATES PAIN VERY BAD, SIMILAR TO PAIN HE HAD YESTERDAY, VS STABLE, OFFERED MEDICATION AND ROBITUSSIN, PT AGREES TO BOTH. BS CLEAR BUT DIM RIGHT AND LEFT LOBES. PT WOULD LIKE TO TRY A RESP TX ALSO. CHARGE NURSE UPDATED.
--- NOTE | 2022-04-09 04:29 | NUR ---
PT MEDICATED WITH 1 NORCO AND ROBITUSSING PER REQUEST FOR PAIN IN LEFT CHEST WALL.
--- NOTE | 2022-04-09 04:45 | NUR ---
RT NOTIFIED BY CHARGE NURSE TO DO SHWETA ZEPEDA.
--- NOTE | 2022-04-09 04:50 | NUR ---
RT IN TO ASSESS PT, PREPARING A NEBULIZER TX PER PT REQUEST.
--- NOTE | 2022-04-09 05:35 | NUR ---
LAB IN FOR AM BLOOD DRAW, PT STATES HE IS FEELING A LITTLE BETTER.
--- NOTE | 2022-04-09 06:05 | NUR ---
PT ASLEEP, NEW BAG OF IVF HUNG, NS @ 125ML/HR.
--- NOTE | 2022-04-09 08:00 | NUR ---
FULL BODY ASSESSMENT DONE, LUNG SOUNDS DIM ON RIGHT SIDE. PATIENT USING IS, ABLE TO FLOAT WAFER TO >1,000 ML. PATIENT UP TO RECLINER, NO OTHER NEEDS AT THIS TIME. ADMINISTER PAIN MEDICATION PER MAR.
--- NOTE | 2022-04-09 08:06 | NUR ---
PT IN BED THIS AM. ACU CHECK COMPLETED, URINAL EMPTIED. CALL LIGHT WITHIN REACH.
--- NOTE | 2022-04-09 09:55 | NUR ---
PATIENT IN BED CHAIR AFTER MEAL. FAMILY IN ROOM. VITALS AND I/O'S COMPLETED. CALL LIGHT WITHIN REACH.
[2022-04-09] MEDS ORDERED: CEFPODOXIME PR200 MG PO (10:45)
[2022-04-09] MEDS ORDERED: METFORMIN HCL500 MG PO (10:46)
[2022-04-09] MEDS ORDERED: ELIQUIS5 MG PO (10:49)
--- NOTE | 2022-04-09 10:52 | NUR ---
PATIENT SITTING UP IN RECLINER DRESSED. SELF REMOVED TELE BOX. PLAN FOR PAITENT TO DISCHARGE HOME, OKAY VERBALIZED TO REMOVE TELE. SON IS IN ROOM WITH PATIENT, DISCUSSED PLAN FOR DISHARGE. PATIENT VERBALIZED AGREEANCE. NO OTHER NEEDS AT THIS TIME.
--- NOTE | 2022-04-09 11:48 | NUR ---
PROVIDED PATIENT WITH DISCHARGE INSTRUCTION, ENCOURAGED TO FOLLOW UP IN 5-7 DAYS WITH HIS PROVIDER. PATIET VERBALIZED UNDERSTANDING. ADMINISTERED 2 TABS NORCO PO, PATIENT REQUESTED SECONDARY TO HAVING TO WAIT FOR PERSCRIPTION TO BE FILLED AT [facility]. STAFF PROVIDED WHEELCHAIR RIDE TO FRONT. ALL QUESTIONS AND CONCERNS ADDRESSED.
--- NOTE | 2022-04-09 21:55 | EKG ---
[facility] [address] [place] [address] Signed Normal sinus rhythm Incomplete right bundle branch block Borderline ECG When compared with ECG of 06-APR-2022 19:16, (Unconfirmed) No significant change was found Confirmed by Jean Pierre Shaikh MD () on 04/09/2022 9:55:29 PM Electronically Signed By: JEAN PIERRE SHAIKH MD 04/09/[id number] PATIENT NAME: SHALONDA REAL TRELL Electrocardiogram DATE OF : 64 PHYSICIAN: JEAN PIERRE SHAIKH MD REPORT #: [id number] REPORT IS CONFIDENTIAL AND NOT TO BE RELEASED WITHOUT AUTHORIZATION
== END 2022-04-09 11:45 | disposition home or self-care (01) | DRG 175 ==
LOC: ED 19:12 → MS 22:37
PROVIDERS: ADMIT Internal Medicine; ATTEND Family Medicine
DX: I26.94 Multiple subsegmental thrombotic pulmonary emboli without acute cor pulmonale (principal); J18.9 Pneumonia, unspecified organism; J90 Pleural effusion, not elsewhere classified; N17.9 Acute kidney failure, unspecified; Z20.822 Contact with and (suspected) exposure to COVID-19; E11.65 Type 2 diabetes mellitus with hyperglycemia; F19.10 Other psychoactive substance abuse, uncomplicated; Z95.5 Presence of coronary angioplasty implant and graft; Z87.891 Personal history of nicotine dependence; Z98.890 Other specified postprocedural states; I25.2 Old myocardial infarction; Z79.2 Long term (current) use of antibiotics; Z79.01 Long term (current) use of anticoagulants; Z79.84 Long term (current) use of oral hypoglycemic drugs
CPT/HCPCS: 36415; 71045; 71260; 80048; 80053; 81003; 83036; 83605; 83735; 84484; 85025; 85379; 85610; 86140; 87502; 93005; 93010; 94640; 94760; 94762; A9270; C9803; J0456; J0696; J1815; J1885; J2930; J3010; J7030; J7060; J7121; Q9967; U0003

== ENCOUNTER 2023-01-09 11:39 | Emergency (ER) | payer OTHER ==
[~2023-01-09] VITALS: Ht 175.3 cm; Wt 83.4 kg
[~2023-01-09 11:39] MED LIST changes: +CEFPODOXIME PR200 MG PO; +ELIQUIS5 MG PO; +METFORMIN HCL500 MG PO
[2023-01-09] MEDS ORDERED: CEPHALEXIN500 M1 PO (13:11)
[2023-01-09 13:36] VITALS: BP 154/90
== END 2023-01-09 13:35 | disposition home or self-care (01) ==
LOC: ED 11:39
DX: S90.821A Blister (nonthermal), right foot, initial encounter (principal); L08.9 Local infection of the skin and subcutaneous tissue, unspecified; E11.9 Type 2 diabetes mellitus without complications; I25.2 Old myocardial infarction; X58.XXXA Exposure to other specified factors, initial encounter; Z87.891 Personal history of nicotine dependence; Z79.84 Long term (current) use of oral hypoglycemic drugs; Z79.01 Long term (current) use of anticoagulants
CPT/HCPCS: 10060; 87070; 87075; 87205; 99283-25

== ENCOUNTER 2024-07-20 17:00 | Inpatient (IN) | payer OTHER ==
[~2024-07-20] VITALS: Ht 175.3 cm; Wt 81.4 kg
[~2024-07-20 17:00] MED LIST changes: +CEPHALEXIN500 M1 PO
[2024-07-20] MEDS ORDERED: NICOTINE 21 MG/24 HR 1 EA TDSY TD SCH (18:16)
[2024-07-20] MEDS ORDERED: ACETAMINOPHEN 325 MG TAB PO PRN (18:30)
[2024-07-20] MEDS ORDERED: DEXTROSE 50% 50 ML SYR IV PRN ×2 (18:30)
[2024-07-20] MEDS ORDERED: IBLOOD GLUCOSE TEST STRIP 1 EA TEST XX PRN (18:30)
[2024-07-20] MEDS ORDERED: TRAMADOL HCL 50 MG TAB PO PRN (18:30)
[2024-07-20] MEDS ORDERED: GLUCAGON,HUMAN RECOMBINANT 1 MG/ML VIAL SUB-Q PRN (18:30)
[2024-07-20] MEDS ORDERED: DEXTROSE 5% 1,000 ML IV PRN (18:30)
--- NOTE | 2024-07-20 18:33 | NUR ---
PATIENT TO FLOOR VIA STRETCHER ESCORTED BY ED RN CLARK. PATIENT AMBULATES WITH SBA FROM STRETCHER TO HOSPITAL BED. WT AND VS OBTAINED. PORTIONS OF ADMISSION COMPLETED. 20G IV STARTED IN PATIENT'S LEFT FOREARM. PATIENT REPORTS NUMBNESS TO RIGHT ARM, UNABLE TO FEEL IV START. PATIENT REPORTS DRY MOUTH - ICE WATER AND SANDWICH BOX PROVIDED. PATIENT EATING AND SWALLOWING WITHOUT ISSUE. PATIENT HAS NO COMPLAINTS AT THIS TIME, CALL LIGHT AND PERSONAL BELONGINGS IN REACH.
[2024-07-20] MEDS ORDERED: CLOPIDOGREL BISULFATE 75 MG TAB PO SCH (18:36)
[2024-07-20 18:42] VITALS: BP 192/105
[2024-07-20] MEDS ORDERED: ASPIRIN 81 MG CHEW PO SCH (18:45)
[2024-07-20 18:49] LABS: BASOPHILS 0.9 % (0.2-1.2); EOSINOPHILS 8.4 % (0.8-7.0); HEMATOCRIT 33.8 % (40.1-51.0); HEMOGLOBIN 11.4 g/dL (13.7-17.5); LYMPHOCYTES 19.7 % (21.8-53.1); MCH 31.1 PG (25.7-32.2); MCHC 33.7 g/dL (32.3-36.5); MCV 92.3 fL (79.0-92.2); MONOCYTES 6.2 % (5.3-12.2); NEUTROPHILS 64.6 % (34.0-67.9); PLATELET COUNT 181 K/uL (163-337); RBC 3.66 M/uL (4.63-6.08)
[2024-07-20 18:57] VITALS: BP 191/96
[2024-07-20 19:08] LABS: ALBUMIN 3.1 g/dL (3.4-5.0); ALBUMIN/GLOBULIN RATIO 0.91 (1.1-2.4); ANION GAP 9.5 (7-21); BILIRUBIN, TOTAL 0.2 mg/dL (0.2-1.0); BUN/CREATININE RATIO 13.15 (6.0-28.6); CALCIUM 8.5 mg/dL (8.5-10.1); CREATININE, SERUM 2.28 mg/dL (0.70-1.30); POTASSIUM 3.5 mmol/L (3.5-5.1); PROTEIN, TOTAL 6.5 g/dL (6.4-8.2)
--- NOTE | 2024-07-20 19:30 | NUR ---
REPORT RECIEVED FROM DAY SHIFT RN. PATIENT RESTING IN BED. DENIES NEEDS AT THIS TIME. CALL LIGHT IN REACH.
[2024-07-20] MEDS ORDERED: INSULIN LISPRO 100 UNIT/ML ML SUB-Q SCH (21:00)
[2024-07-20] MEDS ORDERED: IBLOOD GLUCOSE TEST STRIP 1 EA TEST XX SCH (21:00)
[2024-07-20 21:23] VITALS: BP 188/94
[2024-07-20 21:45] LABS: BILIRUBIN, URINE NEGATIVE (negative); BLOOD/HGB, URINE TRACE-I (Negative); KETONE, URINE NEGATIVE (Negative); LEUK ESTERASE, URINE NEGATIVE (negative); NITRITE, URINE NEGATIVE (negative)
--- NOTE | 2024-07-20 21:45 | NUR ---
PATIENT RESTING IN BED. PATIENT UP TO BATHROOM TO VOID USING 1P SBA TO VOID. PATIENT BACK TO BED. URINE SAMPLE OBTAINED AND SENT TO LAB. ASSESSMENT COMPLETE. PATIENT A&O x4. PATIENT HAS NO FURTHER NEEDS AT THIS TIME. BED ALARM ON. CALL LIGHT IN REACH.
[2024-07-20 21:51] LABS: CRYSTALS, URINE NONE SEEN (0-1+); EPITHELIAL CELLS, URINE SQUAMOUS 1+ /lpf (0-1+); RED BLOOD CELLS, URINE 0-1 /hpf (0-5); WHITE BLOOD CELLS, URINE 0-1 /HPF (0-5)
[2024-07-20 21:52] LABS: BACTERIA, URINE NONE SEEN /hpf (negative); CASTS, URINE NONE SEEN \\lpf; COLLECTION TYPE, URINE CLEAN CATCH; REFLEX CULTURE, URINE No (No)
[2024-07-20 21:59] LABS: AMPHETAMINES, URINE POSITIVE (NEGATIVE); BENZODIAZEPINE, URINE NEGATIVE (NEGATIVE); BUPRENORPHINE, URINE NEGATIVE (NEGATIVE); CANNABINOID, URINE NEGATIVE (NEGATIVE); COCAINE, URINE NEGATIVE (NEGATIVE); ECSTASY, URINE NEGATIVE (NEGATIVE); FENTANYL, URINE POSITIVE (NEGATIVE); METHADONE, URINE NEGATIVE (NEGATIVE); OPIATES, URINE NEGATIVE (NEGATIVE); OXYCODONE, URINE NEGATIVE (NEGATIVE); PHENCYCLIDINE, URINE NEGATIVE (NEGATIVE)
[2024-07-20 22:00] LABS: BARBITURATES, URINE NEGATIVE (NEGATIVE)
[2024-07-21] VITALS (9 sets, daily range): BP systolic 140–174; BP diastolic 83–98
--- NOTE | 2024-07-21 00:29 | NUR ---
PATIENT RESTING IN BED ON BACK. RESPIRATIONS EVEN AND UNLABORED. CALL LIGHT IN REACH.
--- NOTE | 2024-07-21 02:50 | NUR ---
PATIENT RESTING IN BED ON BACK WITH EYES CLOSED. RESPIRATIONS EVEN AND UNLABORED. CALL LIGHT IN REACH.
--- NOTE | 2024-07-21 05:30 | NUR ---
PATIENT RESTING IN BED ON BACK WITH EYES CLOSED. RESPIRATIONS EVEN AND UNLABORED. CALL LIGHT IN REACH.
[2024-07-21 05:37] LABS: BASOPHILS 1.2 % (0.2-1.2); EOSINOPHILS 7.8 % (0.8-7.0); HEMATOCRIT 34.8 % (40.1-51.0); HEMOGLOBIN 11.4 g/dL (13.7-17.5); LYMPHOCYTES 18.7 % (21.8-53.1); MCH 30.9 PG (25.7-32.2); MCHC 32.8 g/dL (32.3-36.5); MCV 94.3 fL (79.0-92.2); MONOCYTES 6.6 % (5.3-12.2); NEUTROPHILS 65.6 % (34.0-67.9); PLATELET COUNT 178 K/uL (163-337); RBC 3.69 M/uL (4.63-6.08)
[2024-07-21 05:50] LABS: ANION GAP 13.1 (7-21); BUN/CREATININE RATIO 13.2 (6.0-28.6); CALCIUM 8.6 mg/dL (8.5-10.1); CREATININE, SERUM 2.12 mg/dL (0.70-1.30); POTASSIUM 4.1 mmol/L (3.5-5.1)
--- NOTE | 2024-07-21 07:12 | NUR ---
Pt report received from DEE Alcantara. Pt is resting supine in bed, A&O, able to lift both legs and hold them up for 10 seconds, one at a time, no drift, and both arms out for 10 seconds with no drift. Pt reports [id number] cramping in both calves, for which hot packs were provided. Advised pt of the importance of keeping the towel between his skin and the hot pack to prevent almeida. Call light in reach, white board updated.
[2024-07-21] MEDS ORDERED: LACTATED RINGER'S 1,000 ML IV SCH (07:45)
[2024-07-21] MEDS ORDERED: AMLODIPINE BESYLATE 5 MG TAB PO SCH (09:00)
[2024-07-21] MEDS ORDERED: ENOXAPARIN SODIUM 40 MG/0.4 ML SYR SUB-Q SCH (09:00)
--- NOTE | 2024-07-21 10:27 | NUR ---
VISITED DURING SPIRITUAL CARE ROUNDS. PT SUPPORTED BY SPOUSE IN ROOM. BOTH IN OVERALL GOOD SPIRITS, NO IMMEDIATE NEEDS. REFINERY OPERATOR HELPER PROVIDED SUPPORTIVE PRESENCE, HOSPITALITY, PRAYER, FACILITATED INTERACTION WITH THERAPY ANIMAL. PT AND SPOUSE EXPRESSED GRATITUDE.
--- NOTE | 2024-07-21 10:32 | NUR ---
UR CLINICAL REVIEW: MCG-PER MCG REVIEW MEETS INPT CRITERIA FOR CVA WITH NEED FOR PT/OT/ST ODS [facility] INPT 07/20/24 @ 1807 ORDER MATCHES REG CLINIC[facility] [place] [place] [facility] AUTH [facility]. PENDING MRI AND ECHO. POSSIBLE PLACEMENT NEEDED PENDING PT EVAL 07/23/24
[2024-07-21] MEDS ORDERED: PHARMACY RENAL DOSE ADJUSTMENT 1 DOSE MISC PO SCH (12:00)
--- NOTE | 2024-07-21 12:27 | NUR ---
MED REC COMPLETE
--- NOTE | 2024-07-21 13:56 | NUR ---
ALERT AND ORIENTED IN BED. LIVES ALONE IN [place] WITH 2 STEPS. STATES HE HAS NO DME. DOES NOT DRIVE, HAS A FRIEND WHO PROVIDES TRANSPORT. HE HAS NO PCP AND WOULD LIKE TO ESTABLISH WITH [facility] IF POSSIBLE. DENIES FINANCIAL DIFFICULTY. HE IS ABLE TO PAY UTILITIES AND FOR FOOD AND MEDICATION WITHOUT DIFFICULTY. DISCUSSED PT RECOMMENDATION TO GO TO INPT REHAB VS. SNF. STATES HE IS OK IF REFERRAL IS SENT, HOWEVER, HE WILL HAVE TO FIND SOMEONE TO WATCH HIS DOG IF HE GOES TO A FACILITY. UNSURE IF HE WOULD AGREE TO GO TO REHAB AT THIS TIME. REQUESTS TO HAVE REFERRAL SENT AND HE WILL DISCUSS CARE OF HIS DOG WITH HIS SON. REFERRAL FAXED TO [facility] INPATIENT RE[facility].
[2024-07-21] MEDS ORDERED: AMLODIPINE BESYLATE 5 MG TAB PO ONE (14:15)
--- NOTE | 2024-07-21 14:52 | NUR ---
PATIENT GIVEN 1400 MEDICATION. NO OTHER NEEDS.
[2024-07-21] MEDS ORDERED: ATORVASTATIN 40 MG TAB PO SCH (17:00)
[2024-07-21] MEDS ORDERED: lisinopriL 2.5 MG TABLET PO SCH (19:00)
--- NOTE | 2024-07-21 19:06 | NUR ---
Per joni Bolden to not have administered the 1L LR at 200ml/hr d/t pt's results from his Echo.
--- NOTE | 2024-07-21 19:31 | NUR ---
REPORT RECEIVED FROM DAY SHIFT RN. PT LYING IN BED RESTING WITH EYES CLOSED. RESPIRATIONS EVEN. WHITE BOARD UPDATED. CALL LIGHT IN REACH.
--- NOTE | 2024-07-21 20:50 | NUR ---
EVENING ASSESSMENT COMPLETE. SCHEDULED MEDS ADMIN PER EMAR. PT REPORTS BACK PAIN, REFUSES PRN FOR PAIN WHEN OFFERED. DENIES NAUSEA. UP TO BR WITH FWW AND SBA TO VOID 550 ML CLEAR YELLOW URINE. BACK TO BED, TREVOR WELL. GAIT WEAK BUT STEADY. TELE #[address] SR[address] HR 70'S. PT REPORTS N/T IN LEFT HAND AND FOOT. BIOLOGY LECTURER STRENGTH EQUAL BILAT. PT DENIES HEADACHE OR VISUAL DISTURBANCES. PT DENIES QUESTIONS OR CONCERNS. CALL LIGHT IN REACH.
--- NOTE | 2024-07-21 23:27 | NUR ---
PT RESTING IN BED WITH EYES CLOSED. RESPIRATIONS EVEN. CALL LIGHT IN REACH.
--- NOTE | 2024-07-22 | NUR ---
PT UP TO BR TO VOID AND HAVE BM WITH FWW. BACK TO BED, TREVOR WELL. GAIT STEADY. SNACK PROVIDED. NO FURTHER NEEDS.
[2024-07-22 01:52] VITALS: BP 190/91
--- NOTE | 2024-07-22 01:59 | NUR ---
PT RESTING WITH EYES CLOSED. AWAKENS EASILY. VS OBTAINED. BP ELEVATED. PT ASYMPTOMATIC. WILL UPDATE MD. ASSESSMENT UNCHANGED. TELE #[address] SR. HR 80'S. UP TO BR WITH FWW AND SBA. GAIT STEADY. BACK TO BED, TREVOR WELL. NO FURTHER NEEDS. CALL LIGHT IN REACH.
--- NOTE | 2024-07-22 02:20 | NUR ---
BANK ACCOUNTANT TO ROOM FOR BED ALARM SOUNDING. PT STANDING AT BEDSIDE, ANGRY THAT BED ALARM IS ACTIVE. STATES HE FEELS RESTLESS HERE "THIS IS A PLACE TO GET BETTER, BUT NOT GET WELL." OFFERED PT TO WALK IN THE ALAN. HE AGREES. 1 LAP AROUND UNIT WITH FWW AND SBA. PT TOLERATED WELL. PT REQUESTS PUDDING AND TABITHA CRACKERS, PROVIDED. PT DENIES FURTHER NEEDS AT THIS TIME. BED ALARM OFF, PT AGREES TO CALL FOR NEEDS.
--- NOTE | 2024-07-22 04:18 | NUR ---
PT LYING IN BED RESTING WITH EYES CLOSED. RESPIRATIONS EVEN. CALL LIGHT IN REACH.
[2024-07-22 05:18] LABS: EOSINOPHILS 7.5 % (0.8-7.0); HEMATOCRIT 37.4 % (40.1-51.0); HEMOGLOBIN 12.4 g/dL (13.7-17.5); LYMPHOCYTES 18.2 % (21.8-53.1); MCH 31.1 PG (25.7-32.2); MCHC 33.2 g/dL (32.3-36.5); MCV 93.7 fL (79.0-92.2); MONOCYTES 5.5 % (5.3-12.2); NEUTROPHILS 67.5 % (34.0-67.9); PLATELET COUNT 211 K/uL (163-337); RBC 3.99 M/uL (4.63-6.08)
[2024-07-22 05:28] LABS: ANION GAP 8.4 (7-21); BUN/CREATININE RATIO 12.96 (6.0-28.6); CALCIUM 8.9 mg/dL (8.5-10.1); CREATININE, SERUM 2.16 mg/dL (0.70-1.30); MAGNESIUM 2.1 mg/dL (1.8-2.4); POTASSIUM 4.4 mmol/L (3.5-5.1)
[2024-07-22 05:30] VITALS: BP 172/93
--- NOTE | 2024-07-22 05:48 | NUR ---
PT RESTING WITH EYES CLOSED. AWAKENS EASILY. VS AND I&O OBTAINED. NO NEEDS AT THIS TIME. CALL LIGHT IN REACH.
--- NOTE | 2024-07-22 06:39 | NUR ---
PATIENT WITH NOTED INCREASED HR ON TELE. PATIENT UP TO BR AND VOIDED. PATIENT REMINDED FOR SAFETY HE NEEDS TO CALL AND LET STAFF KNOW HE NEEDS TO USE THE BR. PATIENT STATED "I DONT KNEE HELP". THIS RN REINTERATED TO PATIENT THAT HE IS UNSTEADY ON HIS FEET AND NEEDS ASSISTANCE AMBULATING TO THE BR. PATIENT IS NOW RESTING IN BED WATCHING TV. NO FURTHER NEEDS NOTED. CALL LIGHT IN REACH.
--- NOTE | 2024-07-22 07:33 | NUR ---
MORNING REPORT RECIEVED FROM DEE CHAUDHARI. PT SITTING UP IN BED AT THIS TIME WITH EYES CLOSED CHEST RISE EQUAL BILAT. PT HAS CALL LIGHT IN REACH AT THIS TIME.
--- NOTE | 2024-07-22 08:04 | NUR ---
PT SITTING UP IN BED AT THIS TIME, PT DENIES PAIN, SOB OR ANY CONCERNS AT THIS TIME, PT HAS CALL LIGHT IN REACH AND NO QESTIONS AT THIS TIME.
[2024-07-22] MEDS ORDERED: carvediloL 3.125 MG TAB PO SCH (09:00)
[2024-07-22] MEDS ORDERED: AMLODIPINE BESYLATE 10 MG TAB PO SCH (09:00)
--- NOTE | 2024-07-22 09:40 | NUR ---
PT SITTING UP IN CHAIR AT THIS TIME, PT ENJOYED BREAKFAST AND HAS NO CURRENT CONCERNS, PT IS HAPPY TO BE LEAVING TODAY AND HAS CALL LIGHT IN REACH.
[2024-07-22 09:42] VITALS: BP 169/85
--- NOTE | 2024-07-22 09:43 | NUR ---
IN TO SPEAK WITH PATIENT. STATES HE WANTS TO GO HOME TODAY. INFORMED LIKELY TO DC TOMORROW BECAUSE PHYSICIAN FEELS PATIENT NEEDS MORE TIME IN HOSPITAL. STATES HE HAS TO GO HOME AND CARE FOR HIS DOG. STATES HE WILL NOT GO TO INPATIENT REHAB OR OTHER FACILITY. STATES HE WANTS TO GO HOME. WILL NEED PCP. [facility] NOT TAKING NEW PATIENTS AT THIS TIME. APPOINTMENT AT [facility] CONTACTED AND APPOINTMENT WITH MARI KEYES PA-C SCHEDULED FOR AT 10:00 AM. CALLED AND NOTIFIED JESSY AT [facility] IN[facility] RE[facility] AND NOTIFIED HER PATIENT IS NOW REFUSING IPR.
[2024-07-22 10:00] VITALS: BP 169/85
[2024-07-22] MEDS ORDERED: CLOPIDOGREL75 MG PO (10:04)
[2024-07-22] MEDS ORDERED: LIPITOR40 MG PO (10:04)
[2024-07-22] MEDS ORDERED: AMLODIPINE BESY10 MG PO (10:05)
[2024-07-22] MEDS ORDERED: CARVEDILOL3.125 MG PO (10:05)
[2024-07-22] MEDS ORDERED: LISINOPRIL2.5 MG PO (10:06)
[2024-07-22] MEDS ORDERED: ASPIRIN81 MG PO (10:06)
[2024-07-22] MEDS ORDERED: METFORMIN HCL500 MG PO (10:08)
--- NOTE | 2024-07-22 10:50 | NUR ---
Education completed on new onset of CHF. Pt sitting in bedside chair on his phone looking for a ride home. Pt does verbalized understanding of education and had no further questions at this time. Pt is aware that if he needs any questions on CHF answered that the cardiac nurse will return to his room to answer them.
--- NOTE | 2024-07-22 11:32 | NUR ---
PT SITTING UP IN CHAIR AT THIS TIME, PT HAS NO CURRENT NEEDS AT THIS TIME AND WAS INFORMED THAT DC PAPER WORK IS ALMOST READY. PT AGREEABLE AT THIS TIME CALL LIGHT IN REACH.
[2024-07-22 11:48] VITALS: BP 159/88
--- NOTE | 2024-07-22 12:11 | NUR ---
PT READ DC INSTRUCTIONS, PT HAS NO QUESTIONS AND HAS ALL BELONGINGS AT THIS TIME, PT WAS PICKED UP BY DAUGHTER AND TOLERATED WELL.
== END 2024-07-22 11:51 | disposition home or self-care (01) | DRG 65 ==
LOC: ED 17:00 → MS 18:07
PROVIDERS: ADMIT Student in an Organized Health Care Education/Training Program; ATTEND Student in an Organized Health Care Education/Training Program
DX: I63.9 Cerebral infarction, unspecified (principal); E87.1 Hypo-osmolality and hyponatremia; I50.20 Unspecified systolic (congestive) heart failure; I13.0 Hypertensive heart and chronic kidney disease with heart failure and stage 1 through stage 4 chronic kidney disease, or unspecified chronic kidney disease; G81.94 Hemiplegia, unspecified affecting left nondominant side; E11.22 Type 2 diabetes mellitus with diabetic chronic kidney disease; N18.9 Chronic kidney disease, unspecified; R20.2 Paresthesia of skin; Z66 Do not resuscitate; I25.10 Atherosclerotic heart disease of native coronary artery without angina pectoris; G31.9 Degenerative disease of nervous system, unspecified; F11.10 Opioid abuse, uncomplicated; F15.10 Other stimulant abuse, uncomplicated; I34.0 Nonrheumatic mitral (valve) insufficiency; F17.210 Nicotine dependence, cigarettes, uncomplicated; M51.360 Other intervertebral disc degeneration, lumbar region with discogenic back pain only; M51.34 Other intervertebral disc degeneration, thoracic region; I25.2 Old myocardial infarction; Z98.890 Other specified postprocedural states; Z86.711 Personal history of pulmonary embolism; Z79.2 Long term (current) use of antibiotics; Z79.899 Other long term (current) drug therapy
CPT/HCPCS: 36415; 70551; 72070; 72100; 80048; 80053; 80061; 80307; 81001; 83036; 83735; 85025; 92507; 92523; 92610; 93306; 93880; 97110; 97161; 97165; 97535; 99285-25; A9270; J1650; J1815

== ENCOUNTER 2025-02-04 23:47 | Emergency (ER) | payer OTHER ==
[~2025-02-04] VITALS: Ht 175.3 cm; Wt 81.1 kg
[~2025-02-04 23:47] MED LIST changes: +AMLODIPINE BESY10 MG PO; +ASPIRIN81 MG PO; +CARVEDILOL3.125 MG PO; +CLOPIDOGREL75 MG PO; +LIPITOR40 MG PO; +LISINOPRIL2.5 MG PO
[2025-02-05] MEDS ORDERED: IBLOOD GLUCOSE TEST STRIP 1 EA TEST VI ONE (00:15)
[2025-02-05 00:29] LABS: BASOPHILS 0.1 % (0.2-1.2); EOSINOPHILS 0 % (0.8-7.0); LYMPHOCYTES 4.1 % (21.8-53.1); MCH 29.4 PG (25.7-32.2); MCHC 31.8 g/dL (32.3-36.5); MCV 92.4 fL (79.0-92.2); MONOCYTES 5.2 % (5.3-12.2); NEUTROPHILS 89.9 % (34.0-67.9); RBC 3.44 M/uL (4.63-6.08)
[2025-02-05 00:58] LABS: ALCOHOL, MEDICAL <3 mg/dL (<3); AST (SGOT) 916 U/L (15-37); GLOMERULAR FILTRATION RATE,EST 16 mL/min (>60); PROTEIN, TOTAL 6.6 g/dL (6.4-8.2); UREA NITROGEN 96 mg/dL (7-18)
[2025-02-05 01:01] LABS: ALT (SGPT) 1287 U/L (14-59)
[2025-02-05 01:15] LABS: INR 1.76 (0.80-1.30); PROTIME 19.5 Sec (11.2-14.2)
[2025-02-05] MEDS ORDERED: HEPARIN SOD,PORK IN 0.45% NACL 500 ML IV SCH (01:15)
[2025-02-05] MEDS ORDERED: AZITHROMYCIN 500 MG in DEXTROSE 5% 250 ML IV ONE (01:45)
[2025-02-05] MEDS ORDERED: METHADOSE40 MG PO (01:53)
[2025-02-05 02:22] LABS: LACTIC ACID, BLOOD 4.4 mmol/L (0.4-2.0)
[2025-02-05] MEDS ORDERED: LACTATED RINGER'S 1,000 ML IV ONE ×2 (02:30→03:30)
[2025-02-05 02:43] LABS: BLOOD/HGB, URINE MODERATE (Negative); KETONE, URINE NEGATIVE (Negative); LEUK ESTERASE, URINE NEGATIVE (negative); NITRITE, URINE NEGATIVE (negative)
[2025-02-05 02:48] LABS: CRYSTALS, URINE NONE SEEN (0-1+); EPITHELIAL CELLS, URINE SQUAMOUS 1+ /lpf (0-1+)
[2025-02-05 02:49] LABS: BACTERIA, URINE 2+ /hpf (negative); CASTS, URINE NONE SEEN \\lpf; REFLEX CULTURE, URINE Yes (No)
[2025-02-05 02:58] LABS: AMPHETAMINES, URINE POSITIVE (NEGATIVE); BARBITURATES, URINE NEGATIVE (NEGATIVE); BENZODIAZEPINE, URINE NEGATIVE (NEGATIVE); CANNABINOID, URINE NEGATIVE (NEGATIVE); COCAINE, URINE NEGATIVE (NEGATIVE); ECSTASY, URINE NEGATIVE (NEGATIVE); FENTANYL, URINE POSITIVE (NEGATIVE); METHADONE, URINE POSITIVE (NEGATIVE); OPIATES, URINE NEGATIVE (NEGATIVE); OXYCODONE, URINE NEGATIVE (NEGATIVE); PHENCYCLIDINE, URINE NEGATIVE (NEGATIVE)
[2025-02-05] MEDS ORDERED: SODIUM CHLORIDE 0.9% 500 ML IV SCH (03:30)
--- NOTE | 2025-02-07 21:53 | EKG ---
[facility] [address] [place] [address] Signed Normal sinus rhythm Left axis deviation Moderate voltage criteria for LVH, may be normal variant ( R in aVL , [place] product ) Prolonged QT Abnormal ECG When compared with ECG of 06-APR-2022 19:17, Incomplete right bundle branch block is no longer present Confirmed by Jean Pierre Shaikh MD () on 02/07/2025 9:53:01 PM Electronically Signed By: JEAN PIERRE SHAIKH MD 02/07/25 215 PATIENT NAME: SHALONDA REAL Electrocardiogram DATE OF : 64 PHYSICIAN: JEAN PIERRE SHAIKH MD REPORT #: [id number] REPORT IS CONFIDENTIAL AND NOT TO BE RELEASED WITHOUT AUTHORIZATION
== END 2025-02-05 03:24 | disposition short-term general hospital (02) ==
LOC: ED 23:47
PROVIDERS: Internal Medicine
DX: A41.9 Sepsis, unspecified organism (principal); I21.4 Non-ST elevation (NSTEMI) myocardial infarction; E11.9 Type 2 diabetes mellitus without complications; I10 Essential (primary) hypertension; R41.82 Altered mental status, unspecified; Z87.891 Personal history of nicotine dependence; J18.9 Pneumonia, unspecified organism; N28.9 Disorder of kidney and ureter, unspecified
CPT/HCPCS: 36415; 70450; 71045; 80053; 80307; 81001; 83605; 83880; 84484; 85025; 85610; 85730; 87040; 87088; 93005; 93010; 96374; 96375; 99285-25; C1713; G0480; J0456; J0696; J1644; J7060; J7121